=== PATIENT | female | born 1950 | race Two or more races ===

== ENCOUNTER 2018-06-07 13:21 | Emergency (ER) | payer MEDICARE, MEDICAID ==
[~2018-06-07] VITALS: Ht 157.5 cm; Wt 101.0 kg
[~2018-06-07 13:21] MED LIST: CIPR500T87 PO; FENO145T32 PO; INSU100I13 SQ-INSULIN; INSU100V5 SQ-INSULIN; MAG30ORA PO; NYST60PO TP; PANT20TA2 PO
[2018-06-07] MEDS ORDERED: METF500T5 PO (15:51)
[2018-06-07] MEDS ORDERED: LISI-170 PO (15:51)
[2018-06-07] MEDS ORDERED: GLIP5TAB10 PO (15:51)
[2018-06-07 16:33] LABS: MICROSCOPIC AUTO
[2018-06-07 16:34] LABS: BASOPHILS # (AUTO) 0.06 x10^3/uL (0-0.1); BASOPHILS % (AUTO) 1 % (0-1); EOSINOPHILS % (AUTO) 1 % (1-7); LYMPHOCYTES % (AUTO) 31 % (22-44); MD NO; MEAN CORPUSCULAR HEMOGLOBIN 29.6 pg (27.0-34.8); MEAN CORPUSCULAR HGB CONC 33.6 g/dL (32.4-35.8); MEAN PLATELET VOLUME 8.1 fL (7.4-10.4); MONOCYTES # (AUTO) 0.49 x10^3/uL (0.2-0.8); MONOCYTES % (AUTO) 6 % (2-9); NEUTROPHILS % (AUTO) 60 % (42-75); PLATELET COUNT 338 x10^3/uL (130-400); RED BLOOD COUNT 4.99 x10^6/uL (3.82-5.3); RED CELL DISTRIBUTION WIDTH 13.9 % (9.6-15.2)
[2018-06-07 16:35] LABS: CULTURE INDICATED? YES
[2018-06-07 16:43] LABS: ALANINE AMINOTRANSFERASE 88 U/L (12-78); ALBUMIN 3.7 g/dL (3.4-5.0); ANION GAP 8 mmol/L (5-15); CALCIUM 9.4 mg/dL (8.5-10.1); CHLORIDE 104 mmol/L (98-107)
[2018-06-07 16:47] LABS: ALKALINE PHOSPHATASE 94 U/L (45-117); BILIRUBIN,TOTAL 0.3 mg/dL (0.2-1.0); TROPONIN I < 0.015 ng/mL (0.000-0.045)
[2018-06-07 17:45] VITALS: BP 126/70
== END 2018-06-07 17:49 | disposition home or self-care (01) ==
LOC: ED 17:43
DX: E11.65 Type 2 diabetes mellitus with hyperglycemia (principal); N30.90 Cystitis, unspecified without hematuria; I10 Essential (primary) hypertension; R63.0 Anorexia
CPT/HCPCS: 36415; 80053; 81001; 84484; 85025; 87086; 87147; 93005; 99285

== ENCOUNTER 2018-12-25 08:50 | Emergency (ER) | payer MEDICARE, MEDICAID ==
[~2018-12-25 08:50] MED LIST changes: +GLIP5TAB10 PO; +LISI-170 PO; +METF500T17 PO
[2018-12-25 08:59] VITALS: BP 200/93
[2018-12-25] MEDS ORDERED: IBUPROFEN 200 MG TABLET PO ONE (10:00)
[2018-12-25] MEDS ORDERED: IBUPROFEN 800 MG TABLET ONE (10:13)
--- NOTE | 2018-12-25 10:25 | NUR ---
Patient/Caregiver given discharge instructions and they have confirmed that they understand the instructions. Patient ambulatory with steady gait. PT LEFT WITH ALL PERSONAL BELONGINGS.
== END 2018-12-25 10:30 | disposition home or self-care (01) ==
LOC: ED 10:07
DX: M54.42 Lumbago with sciatica, left side (principal); I10 Essential (primary) hypertension; E11.9 Type 2 diabetes mellitus without complications
CPT/HCPCS: 99283